=== PATIENT | female | born 1960 | race Hispanic/Latino ===

== ENCOUNTER 2020-09-29 18:24 | Emergency (ER) | payer SELFPAY ==
[2020-09-29] VITALS (8 sets, daily range): BP systolic 115–161; BP diastolic 67–88; PULSE 75–106; RESP 15–19; TEMP 36.7; O2SAT 92–100; BMI 24.5
--- NOTE | 2020-09-29 18:50 | RAD_ITS ---
STUDY: X-RAY - LEFT WRIST REASON FOR EXAM: Female, 60 years old. FALL ON ICE, PAIN AND DEFORMITY TECHNIQUE: 2 view(s) of the wrist were obtained. COMPARISON: None. FINDINGS: Transverse fracture of the distal radius with probable articular surface involvement. Obliquely oriented fracture of the distal ulna is also identified. Anterior apical angulation of the radial fracture without significant displacement. Normal distal radioulnar articulation. Normal carpal bones. Normal carpal articulations. Normal carpometacarpal articulation of the thumb. Normal second through fifth carpometacarpal articulations. Normal visualized metacarpal bones. Soft tissue swelling present. RAD/Wrist 2 Views IMPRESSION: Distal radial and ulnar fractures. Electronically Signed: Av Wang MD (Brooks) at 19:15 EST , Service support ,
[2020-09-29] MEDS: Ondansetron 4 MG/2 ML Vial IV (19:09)
[2020-09-29] MEDS: Morphine 4 MG/ML Syringe IV ×2 (19:09→19:42)
--- NOTE | 2020-09-29 19:11 | RAD_ITS ---
STUDY: X-RAY - LEFT KNEE REASON FOR EXAM: Female, 60 years old. FALL ON ICE. KNEE PAIN TECHNIQUE: 4 view(s) of the knee. COMPARISON: None. FINDINGS: Normal visualized distal femur. Normal visualized proximal tibia and fibula. Normal proximal tibiofibular articulation. Normal medial femorotibial compartment. Normal lateral femorotibial compartment. Normal patellofemoral articulation. There is no demonstrated joint effusion. The soft tissue structures are unremarkable. RAD/Knee 4 or More Views IMPRESSION: No fracture or malalignment. Electronically Signed: Av Wang MD (Brooks) at 19:29 EST , Service support ,
[2020-09-29] MEDS: Propofol 200 MG/20 ML Vial IV BOLUS (19:44)
--- NOTE | 2020-09-29 20:01 | RAD_ITS ---
STUDY: X-RAY - LEFT WRIST REASON FOR EXAM: Female, 60 years old. POST REDUCTION TECHNIQUE: 2 view(s) of the wrist were obtained. COMPARISON: Same day. FINDINGS: Cast obscures bone detail. There appears to be significantly improved positioning of distal radial and ulnar fractures. No significant residual impaction. No distraction of fragments. No significant angulation. RAD/Wrist 2 Views IMPRESSION: Limited by cast but there is near anatomic alignment of distal radial and ulnar fractures. Electronically Signed: Patric Fu MD at 20:35 EST , Service support ,
--- NOTE | 2020-09-29 20:02 | CON.PCM_ITS ---
Reason for Consult Date of Consultation: 09/29/20 History of Present Illness: The patient is a 60 year old female with no significant medical problems that slipped on ice earlier today fracturing her left wrist. She had pain swelling and deformity. She was brought to the emergency room. Orthopedics was abel ropriately consulted. Patient does not speak much Wallisian. Her was present to translate. They deny any head injury or loss of consciousness. Denies previous left wrist problems. Denies numbness or tingling of the fingers. Pain is currently 7 out of 10. [] Past Medical History Allergies No Known Allergies Allergy (Verified 09/29/20 18:31) Home Medications: Ambulatory Orders Medication Instructions Recorded NK 09/29/20 Smoking Status: Never smoker Objective: According to her patient has no known current medical problems. She is not currently taking any prescription medications. She is not allergic to any medications Review of systems: Negative for problems with her eyes ears nose or throat heart or lungs bowel or bladder Previous medical problems include kidney stones Family history according to her she has no family history of problems from anesthetic agents or any other significant problems Social history she does not smoke On physical exam she is a healthy-appearing female uncomfortable lying in bed. She has pain and swelling in her left wrist. Deformity at the left wrist. She can gently wiggle the fingers. Sensation seem to be intact. Pulses are intact. No pain at the shoulder or elbow. No pain at the right upper extremity. Skin is intact. X-rays AP and lateral of left wrist shows a comminuted Colles' type fracture of the distal radius with associated distal ulna fracture. Radius is shortened and apex volar angulated about 40 degrees - Physical Exam Vitals/I&O's: Vital Signs Temp Pulse Resp BP Pulse Ox 98.0 F 100 18 141/84 H 100 09/29/20 18:30 09/29/20 19:59 09/29/20 19:59 09/29/20 19:59 09/29/20 19:59 Oxygen Flow Rate (L/min) [4] 6 Oxygen Flow Rate (L/min) [3] 2 Oxygen Flow Rate (L/min) [2] 2 Oxygen Flow Rate (L/min) 6 Oxygen Delivery Method [4] Nasal Cannula Oxygen Delivery Method [3] Nasal Cannula Oxygen Delivery Method [2] Nasal Cannula Oxygen Delivery Method Room Air Weight: 58.967 kg Body Mass Index (BMI) 24.5 Assessment/Plan Left Colles' fracture, displaced Treatment options were discussed with the patient and her at length. After explaining risk benefits and alternative procedures they did wish to proceed with closed reduction in the ER under conscious sedation. Conscious sedation was administered by Dr. Rangel. He obtained consent for that. Risks of the procedure including but not limited to problems from anesthetic agents which could include . Possibility of damage to nerves arteries tendons. Possibility of further need for intervention such as repeat closed reduction or open reduction internal fixation discussed. No guarantees were stated or implied. They understand there could be residual visual deformity, posttraumatic arthritis, etc. No guarantees were stated or implied. Procedure: After obtaining appropriate consent. Patient underwent conscious sedation as administered by the ER doctor and nurses. After adequate sedation she underwent reduction with countertraction by an ER nurse and myself applying traction and manipulating the fracture in a good position. Once this was clinically well positioned she was placed in well-padded AP splints. Careful three-point molding of the splints opposite the deformity. Once this was adequately hardened x-rays were taken AP and lateral that showed good reduction. We then placed a posterior elbow splint from the upper arm down to the wrist area at 90 degrees of elbow been held in place with Campos wraps. Patient will be discharged to home when okayed with the ER doctor. Pain medication will prescribed by the ER doctor. Recommended ice and elevation. Sling if needed while awake. Gently move the fingers and shoulder. She will follow-up in the office later this week for further x-rays with her splints on. They can return to the emergency room or call if they have questions or concerns in the meantime. Post reduction x-rays reviewed AP and lateral showing good position on both views of the distal radius and ulna. Very acceptable.
--- NOTE | 2020-09-29 20:07 | ED.VISSUMM ---
- ER Visit Summary Date of Service: 09/29/20 Chief Complaint: [Fall and injury to left wrist] History of Present Illness: The patient is a 60 F [presents to the emergency department after sustaining a fall this evening. Patient slipped on some snow and ice and injured her left wrist. Patient also hit her left knee. No head injury or loss of consciousness. She denies neck pain. Patient is right-hand dominant. Most of the history comes from the who interprets for patient as she does not speak Tajik well. Patient has no medical history.] Physical Examination: [HEENT-PERRLA, EOMI. Cranial nerves II through XII grossly intact. TMs clear. Mucous membranes moist. No adenopathy. No external evidence of trauma to her head. No C-spine tenderness on palpation. Cardiovascular-regular rate and rhythm without murmur or ectopy Lungs-clear to auscultation, chest wall stable without crepitus or subcu emphysema Abdomen-normoactive bowel sounds, soft, nontender, no rebound or rigidity, no peritoneal signs. Extremities-intact ?4, normal range of motion, normal pulses. Left wrist-patient has obvious deformity with ecchymosis and bruising as well as soft tissue swelling over the distal radius. Skin is intact. Normal range of motion of all digits. Decreased range of motion at the wrist secondary to pain and swelling. Evaluation of the left knee reveals some mild ecchymosis and bruising over the anterior aspect of the proximal tibia with some mild tenderness on exam. He has good range of motion flexion extension of the knee. She is neurovascular intact distally.] Test Results: [X-rays of the left wrist obtained 3 views read by myself as fracture of the distal radius and ulna the distal radius was displaced and there was shortening with loss of volar tilt. X-rays of the left knee 4 views interpreted by myself as no acute fractures and radiology in agreement.] Emergency Department Course and Treatment: [The line was established. Patient was medicated with morphine 4 mg IV followed by second dose of morphine 4 mg IV. Patient was consented for procedural sedation. I discussed case with orthopedic surgeon on-call Dr. Erick Powers who presented to the emergency department to perform the closed reduction of the distal radius. Patient received a total of 110 mg of propofol. Patient had good sedation and did have some transient hypoxemia for which we had to perform bag valve mask ventilation for approximately 2 minutes. Total procedural time approximately 15 minutes.] Treatment Plan: [Patient will be given a prescription for Sparks for pain. She is to ice and elevate the extremity. She is given a sling. She is to follow-up with Dr. Erick Powers in 3 to 5 days.] Disposition: [Discharged home in stable condition] Impression: [Mechanical fall Left wrist fracture reduced by orthopedics Contusion left knee] This note was generated with [employer] dictation software. It may contain incorrect words, spelling, and punctuation that were not noted in review of the chart prior to signing ED Disposition - Plan for ED Patient: Referrals: Care Physician,No Primary [Primary Care Provider] -
--- NOTE | 2020-09-29 20:11 | ED.DEP ---
ED Disposition - Plan for ED Patient: Instructions: ED Colles Fracture, Reduction Required, ED Contusion, Lower Extremity Prescriptions: Hydrocodone Bitart/Apap 5-325 [[place] 5MG-325MG] 1 tab PO Q4H PRN PRN 2 Days #20 tab PRN Reason: Pain Prescription Printed Referrals: Care Physician,No Primary [Primary Care Provider] - Erick Powers MD [STAFF PHYSICIAN] - 3-5 Days
== END 2020-09-29 20:45 | disposition home or self-care (01) ==
LOC: ED 19:43
PROVIDERS: Emergency Provider Emergency Medicine
DX: S62.102A Fracture of unspecified carpal bone, left wrist, initial encounter for closed fracture (principal); S80.02XA Contusion of left knee, initial encounter; W00.0XXA Fall on same level due to ice and snow, initial encounter
CPT/HCPCS: 25635; 73100; 73564; 96374; 96375; 96376; 99285; J7030; A4216; J2405

== ENCOUNTER 2025-07-30 11:56 | Outpatient (RCR) | payer OTHER, SELFPAY ==
--- NOTE | 2025-07-30 14:03 | HP.PTEVAL ---
Patient's Visit Information Visit Information Visit Information: KEESHA CHRIS is a 64 year old F referred to Physical Therapy by NAIMA Orozco with a diagnosis of LBP. Date of Evaluation: 07/30/25 Physical Therapist: Maverick Diego, PT, ATC Visit Plan Frequency: 2-3x /Week Duration: 4-6 Weeks Plan: SKTC/DKTC, core stab ex's, postural edu, nustep, and HEP Subjective Subjective: Pt fell while at work in May. Pt has had LBP ever since. Pt reports her pain continues to get a little worse as she is still working. Pt reports she has tingling and numbness that radiates into her feet in B LE's. Pt reports she has been in a lot of pain, but it took a while for her to get approval to finally get into here. Pt is having sleep difficulty at this time secondary to pain. Pt reports her pain is constant in nature and hurts all the time. Pt notes increased pain with prolonged standing and prolonged sitting. Pt has had xrays which revealed DDD in her L/S. Pt is going to have an MRI once she receives approval for her L/S. Pt has returned to work without restrictions which continues to increase her pain. 10/10 pain at this time. Pain LBP: Pain Intensity (Out of 10): 10 Pain Intensity Range: 10 Objective Objective: Neuro: B LE sensation is WNL to light touch. MMT: B LE's are grossly 3/5 and painful with all testing. ROM: Pt is limited in all planes secondary to pain Repeated movements: SKTC/DKTC 3 x 10 sec ea NE Balance/Special Test Scores Oswestry Low Back Score: 30 Goals Goal 1:: Decrease LBP x 50% to aid with sleep Goal Time Frame: 4-6 Weeks Goal 2:: Increase L/S ROM by one grade in all planes to aid with IADL's Goal Time Frame: 4-6 Weeks Goal 3:: Decrease the frequency and intensity of B LE radiculopathy x 50% to aid with ambulation Goal Time Frame: 4-6 Weeks Goal 4:: I with HEP Goal Time Frame: 4-6 Weeks Rehabilitation Potential Physical Therapy Diagnosis: Pt has LBP, B LE radiculopathy, and limited L/S ROM secondary to L/S strain Rehabilitation Potential: Good Anticipated Interventions Patient/Client Instruction: Educate patient on: Condition and Plan of Care For the Purpose of:: To improve self management Therapeutic Exercise to Include: Strength training, Endurance training, Body mechanics, Postural training and Dynamic Lumbar Stabilization For the Purpose of:: To decrease pain, To increase ROM and To improve muscle performance and motor function Text: Thank you for the opportunity to evaluate your patient. For Medicare and Medicare HMO plans, please review the plan of care and approve it. It will need to be FAXED BACK to us at [phone] for Medicare purposes. For Medicare only, by signing this I certify the plan of care. Please let me know if there are questions or concerns regarding this plan of care. Physician Signature: Date:
--- NOTE | 2025-09-17 10:43 | HP.PT.NRP ---
Patient Information Patient Information: KEESHA CHRIS was seen in my office for initial evaluation on 07/30/25. The following Plan of Care was established for this patient: POC Established Initial Frequency: 2-3x /Week Initial Duration: 4-6 Weeks Anticipated Interventions Patient/Client Instruction: Educate patient on: Condition and Plan of Care For the Purpose of:: To improve self management Therapeutic Exercise to Include: Strength training, Endurance training, Body mechanics, Postural training and Dynamic Lumbar Stabilization For the Purpose of:: To decrease pain, To increase ROM and To improve muscle performance and motor function Last Seen Last Seen: This patient was last seen in our office . Pertinent comments regarding their Physical therapy will appear below: Pt has not returned in greater than 30 days and is discontinued at this time. At this point I will be discontinuing this patient from physical therapy. I would be happy to see this patient again in the future if found appropriate by the physician. Thank you! Maverick Diego, PT, ATC Balance/Gait/Functional tests Balance/Special Test Scores Oswestry Low Back Score: 30
== END 2025-07-30 19:00 | disposition home or self-care (01) ==
LOC: PT 11:56
PROVIDERS: Referring Provider Physician Assistant; Visit Provider Physician Assistant
DX: S39.012D Strain of muscle, fascia and tendon of lower back, subsequent encounter (principal); S16.1XXD Strain of muscle, fascia and tendon at neck level, subsequent encounter
CPT/HCPCS: 97161

== ENCOUNTER → 2025-08-13 | Outpatient (CLI) | payer OTHER, SELFPAY ==
--- NOTE | 2025-08-13 16:13 | MRI_ITS ---
PROCEDURE: SPINE LUMBAR (ROUTINE) 08/13/2025 REASON FOR EXAM: LBP W/ BLE PARESTHESIAS TECHNIQUE: Procedure Code: MRISPL Modality: MR Procedure: SPINE LUMBAR (ROUTINE) COMPARISON: Correlation with lumbar radiographs 06/18/2025. FINDINGS: For the purposes of this report, the most caudal rectangular vertebral body will be designated L5. The next most caudal trapezoidal shaped vertebral body will be designated S1. The intervening disc at the lumbosacral angle is designated L5-S1. The lumbar lordosis is maintained. New L2 compression fracture when compared to the lumbar radiographs dated 06/18/2025. Additionally, there is mild associated bone marrow edema. Chronic L3 compression fracture with mild retropulsion. The lumbar vertebral bodies are normal in alignment. No focal bone marrow replacing lesion in the lumbar spine. Multilevel disc desiccation. There is no evidence of signal abnormality in the imaged distal spinal cord. The conus medullaris terminates at the level of L2. T12-L1: No significant spinal canal stenosis or neural foraminal narrowing. L1-L2: No significant spinal canal stenosis or neural foraminal narrowing. L2-L3: Disc bulge, bilateral facet arthrosis, and ligamentum flavum hypertrophy. Mild spinal canal stenosis. No significant neural foraminal narrowing. L3-L4: Retropulsion from L3 vertebral body compression fracture, bulge, bilateral facet arthrosis, and ligamentum flavum hypertrophy contribute to [id number] spinal canal stenosis and subarticular zone narrowing. Mild bilateral neural foraminal narrowing. L4-L5: Disc bulge, bilateral facet arthrosis, and ligamentum flavum hypertrophy all contribute to [id number] spinal canal stenosis and subarticular zone narrowing. The bilateral traversing nerve roots abut the disc. No significant neural foraminal narrowing. L5-S1: Disc bulge, bilateral facet arthrosis, and ligamentum flavum hypertrophy. No significant spinal canal stenosis. Mild right neural foraminal narrowing. No significant left neural foraminal narrowing. The posterior paraspinal muscles are intact. MRI/Spine Lumbar (Routine) IMPRESSION: 1. Acute to subacute L2 compression fracture. New when compared to lumbar radi ographs dated 06/18/2025. 2. Chronic L3 compression fracture. 3. Lumbar spondylosis without high-grade spinal canal or neural foraminal steno sis. Additional details as discussed above. Reading Location: [id number]
== END | disposition home or self-care (01) ==
LOC: MRI 16:11
PROVIDERS: Referring Provider Physician Assistant; Visit Provider Physician Assistant
DX: S39.012A Strain of muscle, fascia and tendon of lower back, initial encounter (principal); M54.16 Radiculopathy, lumbar region
CPT/HCPCS: 72148